=== PATIENT | female | born 1945 ===

== ENCOUNTER 2022-04-20 08:47 | Outpatient (CLI) | payer MEDICARE, SELFPAY ==
--- NOTE | 2022-04-20 08:45 | RT.EKG_ITS ---
APPROVED REPORT Exam: Resting ECG Reason for Exam: palpitations Patient Location: O HR:72 bpm ECG Measurements Heart Rate 72 AXIS MN 173 P 83 QRSd 90 QRS 70 QT 404 T 50 QTc 443 Conclusion Sinus rhythm...normal P axis, V-rate 50- 99 Consider left ventricular hypertrophy...(R aVL+S V3) >2.20mV Baseline wander in lead(s) II,III,aVF
== END 2022-04-20 08:48 | disposition home or self-care (01) ==
LOC: DI.CARD 08:50
PROVIDERS: Visit Provider Physician Assistant
DX: R00.2 Palpitations (principal); R94.31 Abnormal electrocardiogram [ECG] [EKG]
CPT/HCPCS: 93010

== ENCOUNTER → 2022-04-20 08:50 | Outpatient (BNVA) | payer MEDICARE, SELFPAY | PROVIDERS: Visit Provider Physician Assistant | DX: E03.9 Hypothyroidism, unspecified (principal); R53.83 Other fatigue; R00.2 Palpitations; I47.1 Supraventricular tachycardia; I49.3 Ventricular premature depolarization | CPT/HCPCS: 93005; 99203 ==

== ENCOUNTER → 2022-08-17 13:25 | Outpatient (BNVA) | payer MEDICARE, SELFPAY | PROVIDERS: Visit Provider Physician Assistant | DX: R00.2 Palpitations (principal); I47.1 Supraventricular tachycardia; I49.3 Ventricular premature depolarization | CPT/HCPCS: 93005; 99213 ==

== ENCOUNTER 2022-08-17 13:27 | Outpatient (CLI) | payer MEDICARE, SELFPAY ==
--- NOTE | 2022-08-17 13:15 | RT.EKG_ITS ---
APPROVED REPORT Exam: Resting ECG Reason for Exam: NPW, Baseline needed Patient Location: O HR:52 bpm ECG Measurements Heart Rate 52 AXIS OK 187 P 85 QRSd 95 QRS 53 QT 476 T 23 QTc 443 Conclusion Sinus rhythm...normal P axis, V-rate 50- [address] depression, lateral leads...ST <-0.04mV, I aVL V5 V6
== END 2022-08-17 13:28 | disposition home or self-care (01) ==
LOC: DI.CARD 13:27
PROVIDERS: Visit Provider Physician Assistant
DX: I47.1 Supraventricular tachycardia (principal); I49.3 Ventricular premature depolarization; R00.2 Palpitations
CPT/HCPCS: 93010

== ENCOUNTER 2022-09-14 08:10 | Outpatient (CLI) | payer MEDICARE, SELFPAY ==
--- NOTE | 2022-09-14 08:00 | RT.EKG_ITS ---
APPROVED REPORT Exam: Resting ECG Reason for Exam: SVT Patient Location: O HR:54 bpm ECG Measurements Heart Rate 54 AXIS WY 182 P 81 QRSd 100 QRS 61 QT 458 T 21 QTc 435 Conclusion Sinus rhythm...normal P axis, V-rate 50- [address] depression, anterolateral leads...ST <-0.04mV, I aVL V2-V6
== END 2022-09-14 08:11 | disposition home or self-care (01) ==
LOC: DI.CARD 08:10
PROVIDERS: Visit Provider Physician Assistant
DX: I47.1 Supraventricular tachycardia (principal)
CPT/HCPCS: 93010

== ENCOUNTER → 2022-09-14 11:12 | Outpatient (BNVA) | payer MEDICARE, SELFPAY | PROVIDERS: Visit Provider Physician Assistant | DX: I47.1 Supraventricular tachycardia (principal) | CPT/HCPCS: 93005; 99213 ==

== ENCOUNTER → 2022-11-02 13:58 | Outpatient (BNVA) | payer MEDICARE, SELFPAY | PROVIDERS: Visit Provider Internal Medicine Cardiovascular Disease | DX: I47.1 Supraventricular tachycardia (principal) | CPT/HCPCS: 99214 ==

== ENCOUNTER → 2023-01-04 09:12 | Outpatient (BNVA) | payer MEDICARE, SELFPAY | PROVIDERS: Visit Provider Internal Medicine Cardiovascular Disease | DX: R00.0 Tachycardia, unspecified (principal) | CPT/HCPCS: 99213 ==

== ENCOUNTER 2024-01-03 08:47 | Outpatient (CLI) | payer MEDICARE, SELFPAY ==
--- NOTE | 2024-01-03 08:45 | RT.EKG_ITS ---
APPROVED REPORT Exam: Resting ECG Reason for Exam: paroxysmal SVT Patient Location: O HR:66 bpm ECG Measurements Heart Rate 66 AXIS AL 174 P 89 QRSd 97 QRS 56 QT 412 T 21 QTc 432 Conclusion Sinus rhythm...normal P axis, V-rate 50- 99 Probable left atrial enlargement...P >50mS, <-0.10mV V1 Left ventricular hypertrophy...multiple LVH criteria
== END 2024-01-03 08:48 | disposition home or self-care (01) ==
LOC: DI.CARD 08:48
PROVIDERS: Visit Provider Internal Medicine Cardiovascular Disease
DX: I47.10 Supraventricular tachycardia, unspecified (principal); I49.3 Ventricular premature depolarization
CPT/HCPCS: 93010

== ENCOUNTER → 2024-01-03 09:23 | Outpatient (BNVA) | payer MEDICARE, SELFPAY | PROVIDERS: Visit Provider Internal Medicine Cardiovascular Disease | DX: I47.10 Supraventricular tachycardia, unspecified (principal); I49.3 Ventricular premature depolarization | CPT/HCPCS: 93005; 99214 ==

== ENCOUNTER → 2025-04-02 14:08 | Outpatient (BNVA) | payer MEDICARE, SELFPAY | PROVIDERS: Visit Provider Internal Medicine Cardiovascular Disease | DX: I47.19 Other supraventricular tachycardia (principal) | CPT/HCPCS: 99213 ==